=== PATIENT | female | born 1935 | race Caucasian/White ===

== ENCOUNTER 2019-10-27 19:38 | Observation (INO) ==
[2019-10-27 20:15] LABS: Hematocrit 36.9 % (37.0-47.0); Hemoglobin 11.8 gm/dL (12.5-16.0); Mean Cell Volume 88.9 fl (78-100); Mean Corpuscular Hemoglobin 28.4 pg (27-31); Mean Platelet Volume 10.1 fl (8-12.5); Neutrophil # 3.3 K/mm3 (1.3-6.0); Neutrophil % 58.3 % (42-75.0); Platelet Count 279 K/mm3 (150-450); Red Blood Count 4.15 M/mm3 (4.2-5.4); Red Cell Distribution Width 12.4 % (11.5-14.0); White Blood Count 5.6 K/mm3 (4.0-10.5)
--- NOTE | 2019-10-27 20:19 | ERNOTE ---
Dyspnea - General Presenting Symptoms: shortness of breath Time Seen by Provider: 10/27/19 20:09 Source: patient Exam Limitations: no limitations - Immun/Allergies/Home Medications Immunizations: IMMUNIZATION HX Immunizations Up to Date Yes History of Influenza Vaccine Yes Hx Pneumococcal Vaccination Yes Allergies/Adverse Reactions: Allergies naproxen [From Naprosyn] Allergy (Severe, Verified 10/27/19 19:51) Anaphylaxis Home Medications: HOME MEDICATIONS Atorvastatin Calcium 20 mg PO HS 10/21/12 [Last Taken Unknown] Fluticasone Propion/Salmeterol [Advair 250-50 Diskus] 14 each IH PRN PRN 10/21/12 [Last Taken Unknown] Isosorbide Mononitrate [Imdur] 60 mg PO DAILY 10/21/12 [Last Taken Unknown] Losartan Potassium [Cozaar] 50 mg PO DAILY 10/21/12 [Last Taken Unknown] amLODIPine BESYLATE [Norvasc (Amlodipine)] 5 mg PO DAILY 10/21/12 [Last Taken Unknown] Alendronate Sodium 70 mg PO Q7D 08/19/13 [Last Taken Unknown] Acetaminophen 1 - 3 tab PO TID PRN 09/27/19 [Last Taken Unknown] Gabapentin [Neurontin] 300 mg PO BID 09/27/19 [Last Taken Unknown] Metoprolol Tartrate [Lopressor] 37.5 mg PO BID 09/27/19 [Last Taken Unknown] Nitroglycerin 0.4 mg SUBLINGUAL Q5M PRN 09/27/19 [Last Taken Unknown] Pantoprazole Sodium 40 mg PO HS 09/27/19 [Last Taken Unknown] - History of Present Illness Narrative: She has had some increasing shortness of breath for about a week. Today around 1700 she had rapid increase in shortness of breath had some nausea and weakness. Severity: moderate, severe Treatment ASSURANCE OFFICER: by patient, albuterol Initiating event: Reports: unknown Frequency of episodes: Reports: frequent episodes Modifying Factors - (Improves): Reports: albuterol Modifying Factors (Worsens): Reports: activity Associated Symptoms-Dyspnea: Reports: wheezing Review of Systems - Review of Systems Constitutional: Present: fatigue. Absent: fever, chills EYE: Absent: vision changes ENT: Absent: nose congestion, nasal drainage Respiratory: Present: See HPI, shortness of breath, cough Cardiology: Present: chest pain Gastrointestinal/Abdominal: Present: nausea, vomiting. Absent: abdominal pain Musculoskeletal: Absent: back pain, muscle pain Skin: Absent: rash Neurological: Absent: headache, dizziness/light-headedness Endocrine: Absent: excessive sweating Medical History (Last Reviewed 10/27/19 @ 20:18 by Lance Flores DO) CAD (coronary artery disease) COPD (chronic obstructive pulmonary disease) FH: radiation therapy GI bleed Gastric ulcer HTN (hypertension) Lung cancer Surgical History: Surgical History (Last Reviewed 10/27/19 @ 20:18 by Lance Flores DO) History of appendectomy Hx of exploratory laparotomy Social History: (Last Reviewed 10/27/19 @ 20:18 by Lance Flores DO) Tobacco: Smoking Status: Former smoker Alcohol: alcohol intake: never Substance Use: substance use type: does not use Physical Exam - Physical Exam General Appearance: Present: wd/wn, alert, mild distress Head Exam: Present: normal inspection, no evidence of injury Neck: Present: normal inspection, nontender, supple Respiratory: Present: no respiratory distress, crackles, wheezing Cardiovascular/Chest: Present: no murmur, tachycardia Gastrointestinal/Abdominal: Present: normal bowel sounds, nontender, nondistended, soft Extremity Exam: Present: normal inspection, normal range of motion, no edema Neurological Exam: Present: alert, oriented, normal mood/affect Skin Exam: Present: normal color, warm/dry Lymphatic Exam: Present: no adenopathy Progress - Results and Orders Patient's Lab Results:: I have reviewed the patient's lab results. Results and Orders: Laboratory Tests 10/27/19 10/27/19 19:55 19:55 WBC 5.6 Hgb 11.8 L Hct 36.9 L Plt Count 279 Sodium 136 Potassium 4.1 Chloride 100 Carbon Dioxide 25.2 Anion Gap 14.9 H BUN 20 Creatinine 1.35 Calcium 8.8 Total Bilirubin 0.4 AST 19 ALT 15 L Troponin I Less than 0.017 B-Natriuretic Peptide 1177 H - Vital Signs Patient's Vital Signs:: I have reviewed the patient's vital signs. Vital Signs: Vital Signs 10/27/19 19:45 Temperature 36.6 C Pulse Rate 97 Respiratory Rate 15 Blood Pressure 133/72 O2 Sat by Pulse Oximetry 90 L - EKG EKG #1 EKG: NSR, other - old GA EKG read: Interp. by me - X-Ray X-Ray #1 X-Ray: chest Interpretation: Interp. by me X-ray Comments: Bilateral pulmonary edema. No consolidation. - Progress/Reassessment Chief Complaint: Dyspnea Progress Note-Subjective: 10/27/19 22:[address] Cedeño and she agrees with admission, we will also treat for acute exacerbation of COPD as this may be a combination of CHF and COPD. Departure Clinical Impression: Acute exacerbation of chronic bronchitis, Hypoxia CHF (congestive heart failure) Qualifiers: Heart failure type: unspecified Heart failure chronicity: acute Qualified Code(s): I50.9 - Heart failure, unspecified - Departure Disposition: Still a patient Condition: Good Referrals: Leanna Alfonso MD [Primary Care Provider] -
[2019-10-27 20:28] LABS: ALT 15 U/L (19-67); AST 19 U/L (0-48); Albumin * 3.6 gm/dl (3.4-5.0); Alkaline Phosphatase * 99 U/L (50-170); Anion Gap 14.9 mmol/L (6.8-13.8); BNP * 1177 pg/mL (5-550); BUN/Creatinine Ratio 14.8 (9.0-21.6); Bilirubin, Total 0.4 mg/dL (0.0-1.1); Blood Urea Nitrogen 20 mg/dL (3-23); Ca. Corrected For Albumin 8.8 mg/dL (8.4-10.2); Calcium * 8.8 mg/dL (7.9-10.9); Carbon Dioxide 25.2 mmol/L (24-32.6); Chloride 100 mmol/L (97-106); Glucose * 151 mg/dL (70-110); Potassium 4.1 mmol/L (3.4-4.6); Sodium 136 mmol/L (132-142); Troponin I Less than 0.017 ng/mL (0.00-0.10)
[2019-10-27] MEDS ORDERED: FUROSEMIDE 10 MG/ML VIAL IV ONE (21:04)
[2019-10-27] MEDS ORDERED: ALBUTEROL SULFATE 60 PUFF INHALER IH ONE (21:08)
[2019-10-27] MEDS ORDERED: cefTRIAXone SODIUM 1,000 MG/100 ML BAG IV ONE (22:27)
[2019-10-28 06:38] LABS: Anion Gap 8.7 mmol/L (6.8-13.8); BUN/Creatinine Ratio 14.6 (9.0-21.6); Calcium * 8.6 mg/dL (7.9-10.9); Carbon Dioxide 31.2 mmol/L (24-32.6); Estimated Creat Clear 24.2; Potassium 3.9 mmol/L (3.4-4.6)
[2019-10-28] MEDS ORDERED: AZITHROMYCIN 250 MG TABLET PO ONE (09:20)
[2019-10-28] MEDS: predniSONE 20 MG TABLET PO SCH (09:42)
[2019-10-28] MEDS: BENZONATATE 100 MG CAPSULE PO PRN (09:47)
[2019-10-28] MEDS: ALBUTEROL SULFATE/IPRATROPIUM 3 ML NEBU IH PRN ×3 (09:51→19:27)
--- NOTE | 2019-10-28 13:01 | HP ---
Chief Complaint - Chief Complaint Date of Service: 10/28/19 Time of Service: 09:03 Chief Complaint: Shortness of breath for several weeks History of Present Illness: 84-year-old female with a past medical history of coronary artery disease, COPD, hypertension, lung cancer not undergoing any treatment at this time only surveillance GI bleed presents from home with complaints of worsening shortness of breath for the past several weeks. She states her symptoms worsened last night and she presented to the emergency department. She does currently smoke 3 cigarettes daily. She is following with an oncologist at the [facility]. In the emergency room she was found to have low oxygen saturation of 90%, chest x-ray was positive for patchy consolidation posterior left midlung and possibly right medial mid lung indeterminate pulmonary nodule right mid to upper lung field, granulomatous disease. He was given 1 dose of Lasix 20 mg with not much urine output. She was started on ceftriaxone in the emergency room. She was admitted for COPD exacerbation. She was found to have a mildly elevated BNP of 1177. Medical History (Last Reviewed 10/28/19 @ 00:04 by Kylah Lopez RN) CAD (coronary artery disease) COPD (chronic obstructive pulmonary disease) FH: radiation therapy GI bleed Gastric ulcer HTN (hypertension) Lung cancer Surgical History: Surgical History (Last Reviewed 10/28/19 @ 00:04 by Kylah Lopez RN) History of appendectomy Hx of exploratory laparotomy Family History: Family History (Last Updated 10/27/19 @ 22:28 by Flor Crawford) Other No pertinent family history Social History: (Last Updated 10/28/19 @ 00:04 by Kylah Lopez RN) Tobacco: Smoking Status: Current every day smoker tobacco type: cigarettes Smoking cigarettes per day: 3 Alcohol: alcohol intake: never Substance Use: substance use type: does not use Review Of Systems (GEN) - Review of Systems Generalized/Overall Review: Absent: Fever Respiratory: Present: Cough, Shortness of Breath Cardiac: Present: Chest Pain Abdominal: Absent: Abdominal Pain Misc: All systems neg except as marked Immunizations: IMMUNIZATION HX Immunizations Up to Date Yes History of Influenza Vaccine Yes Hx Pneumococcal Vaccination Yes Allergies/Adverse Reactions: Allergies Allergy/AdvReac Type Severity Reaction Status Date / Time naproxen [From Naprosyn] Allergy Severe Anaphylaxis Verified 10/27/19 19:51 Home Medications: HOME MEDICATIONS Atorvastatin Calcium 20 mg PO HS 10/21/12 [Last Taken Unknown] Losartan Potassium [Cozaar] 50 mg PO DAILY 10/21/12 [Last Taken Unknown] amLODIPine BESYLATE [Norvasc (Amlodipine)] 5 mg PO DAILY 10/21/12 [Last Taken Unknown] Alendronate Sodium 70 mg PO Q7D 08/19/13 [Last Taken Unknown] Acetaminophen 1 - 3 tab PO TID PRN 09/27/19 [Last Taken Unknown] Gabapentin [Neurontin] 300 mg PO TID 09/27/19 [Last Taken Unknown] Metoprolol Tartrate [Lopressor] 37.5 mg PO BID 09/27/19 [Last Taken Unknown] Nitroglycerin 0.4 mg SUBLINGUAL Q5M PRN 09/27/19 [Last Taken Unknown] Pantoprazole Sodium 40 mg PO HS 09/27/19 [Last Taken Unknown] Albuterol Sulfate [Ventolin HFA] 2 puff INHALATION Q4H PRN 10/28/19 [Last Taken Unknown] Aspirin [Aspirin Enteric Coated] 81 mg PO DAILY 10/28/19 [Last Taken Unknown] Benzonatate 200 mg PO TID 10/28/19 [Last Taken Unknown] Bupropion HCl [Bupropion Xl] 150 mg PO DAILY 10/28/19 [Last Taken Unknown] Clonazepam 0.25 mg PO TID PRN 10/28/19 [Last Taken Unknown] Clopidogrel Bisulfate [Clopidogrel] 75 mg PO DAILY 10/28/19 [Last Taken Unknown] Cyclobenzaprine HCl [Flexeril] 10 mg PO TID PRN 10/28/19 [Last Taken Unknown] Fluticasone/Vilanterol [Breo Ellipta 200-25 Mcg INH] 1 ea INHALATION DAILY 10/28/19 [Last Taken Unknown] Hydrochlorothiazide [Hydrodiuril] 25 mg PO DAILY 10/28/19 [Last Taken Unknown] Isosorbide Mononitrate [Isosorbide Mononitrate ER] 60 mg PO DAILY 10/28/19 [Last Taken Unknown] Exam - Exam Vital Signs: Vital Signs - Last Taken Temp 36.3 C 10/28/19 06:00 Pulse 102 H 10/28/19 09:59 Resp 22 H 10/28/19 09:59 BP 125/46 10/28/19 06:00 Pulse Ox 98 10/28/19 10:03 Constitutional: Present: Alert, Cooperative, Well developed, Well nourished, Elderly ENT Exam: Present: hearing grossly normal Eye Exam: bilateral eye: normal inspection, PERRL, EOMI Neck: Present: non-tender. Absent: lymphadenopathy (R), lymphadenopathy (L) Back Exam: Present: normal inspection, no CVA tenderness, no vertebral tenderness Respiratory: Present: no respiratory distress, no accessory muscle use, wheezing - Throughout all lung levy on expiration. Absent: lungs clear, crackles, rhonchi Cardiovascular/Chest: Present: normal peripheral pulses, no edema, no murmur, tachycardia Peripheral Pulses: dorsalis-pedis (R): 1+, dorsalis-pedis (L): 1+ Abdomen: Present: Normal bowel sounds, soft, nontender Extremity: Present: no pedal edema Skin Exam: Present: normal color, warm/dry Neurologic: Present: alert, normal mood/affect Appearance: Present: appropriate appearance, appropriate insight Eye contact: Present: cooperative Thoughts: Present: normal thought pattern, normal mood /affect Diagnostic Studies: Abnormal Lab Results 10/27/19 10/27/19 10/28/19 Range/Units 19:55 19:55 06:10 RBC 4.15 L (4.2-5.4) M/mm3 Hgb 11.8 L (12.5-16.0) gm/dL Hct 36.9 L (37.0-47.0) % Immature Gran % (Auto) 0.70 H (0.001-0.429) % Immature Gran # (Auto) 0.04 H (0.000-0.0310) K/mm3 Eosinophils % 6.1 H (0.0-3.0) % Lymphocytes # 1.48 L (1.5-3.5) k/mm3 Anion Gap 14.9 H (6.8-13.8) mmol/L Est GFR (Non-Af Amer) 40 L 39 L (60-130) mL/min Random Glucose 151 H (70-110) mg/dL ALT 15 L (19-67) U/L B-Natriuretic Peptide 1177 H 1152 H (5-550) pg/mL Laboratory Results WBC 5.6 K/mm3 (4.0-10.5) 10/27/19 19:55 RBC 4.15 M/mm3 (4.2-5.4) L 10/27/19 19:55 Hgb 11.8 gm/dL (12.5-16.0) L 10/27/19 19:55 Hct 36.9 % (37.0-47.0) L 10/27/19 19:55 MCV 88.9 fl (78-100) 10/27/19 19:55 MCH 28.4 pg (27-31) 10/27/19 19:55 MCHC 32.0 g/dl (32-36) 10/27/19 19:55 RDW 12.4 % (11.5-14.0) 10/27/19 19:55 Plt Count 279 K/mm3 (150-450) 10/27/19 19:55 MPV 10.1 fl (8-12.5) 10/27/19 19:55 Immature Gran % (Auto) 0.70 % (0.001-0.429) H 10/27/19 19:55 Immature Gran # (Auto) 0.04 K/mm3 (0.000-0.0310) H 10/27/19 19:55 Neutrophils % 58.3 % (42-75.0) 10/27/19 19:55 Lymphocytes % 26.6 % (20-51) 10/27/19 19:55 Monocytes % 7.9 % (0.0-9) 10/27/19 19:55 Eosinophils % 6.1 % (0.0-3.0) H 10/27/19 19:55 Basophils % 0.4 % (0.0-1.0) 10/27/19 19:55 Nucleated RBC % 0.0 k/mm3 (0-1) 10/27/19 19:55 Neutrophils # 3.3 K/mm3 (1.3-6.0) 10/27/19 19:55 Lymphocytes # 1.48 k/mm3 (1.5-3.5) L 10/27/19 19:55 Monocytes # 0.4 k/mm3 (0.0-1.0) 10/27/19 19:55 Eosinophils # 0.3 k/mm3 (0.0-0.7) 10/27/19 19:55 Absolute Basophils 0.0 k/mm3 (0.0-0.1) 10/27/19 19:55 Sodium 137 mmol/L (132-142) 10/28/19 06:10 Plasma Sodium 137 mmol/L (130-142) 10/28/19 06:10 Potassium 3.9 mmol/L (3.4-4.6) 10/28/19 06:10 Chloride 101 mmol/L (97-106) 10/28/19 06:10 Carbon Dioxide 31.2 mmol/L (24-32.6) 10/28/19 06:10 Anion Gap 8.7 mmol/L (6.8-13.8) 10/28/19 06:10 BUN 20 mg/dL (3-23) 10/28/19 06:10 Creatinine 1.37 mg/dL (0.4-1.4) 10/28/19 06:10 Est GFR (Non-Af Amer) 39 mL/min (60-130) L 10/28/19 06:10 BUN/Creatinine Ratio 14.6 (9.0-21.6) 10/28/19 06:10 Random Glucose 92 mg/dL (70-110) D 10/28/19 06:10 Calcium 8.6 mg/dL (7.9-10.9) 10/28/19 06:10 Calcium Adj for Albumin 8.8 mg/dL (8.4-10.2) 10/27/19 19:55 Total Bilirubin 0.4 mg/dL (0.0-1.1) 10/27/19 19:55 AST 19 U/L (0-48) 10/27/19 19:55 ALT 15 U/L (19-67) L 10/27/19 19:55 Alkaline Phosphatase 99 U/L (50-170) 10/27/19 19:55 Troponin I Less than 0.017 ng/mL (0.00-0.10) 10/27/19 19:55 B-Natriuretic Peptide 1152 pg/mL (5-550) H 10/28/19 06:10 Total Protein 8.0 gm/dL (6.2-8.2) 10/27/19 19:55 Albumin 3.6 gm/dl (3.4-5.0) 10/27/19 19:55 SARS-CoV-2 (PCR) Not detected (ND) 10/27/19 22:20 Assessment/Plan - Narrative Narrative: 84-year-old female with a past medical history of coronary artery disease, COPD, hypertension, lung cancer not undergoing any treatment at this time only surveillance GI bleed presents from home with complaints of worsening shortness of breath for the past several weeks. She also complains of worsening cough. She states her symptoms worsened last night and she presented to the emergency department. She does currently smoke 3 cigarettes daily. She is following with an oncologist at the [facility]. In the emergency room she was found to have low oxygen saturation of 90%, chest x-ray was positive for patchy consolidation posterior left midlung and possibly right medial mid lung indeterminate pulmonary nodule right mid to upper lung field, granulomatous disease. He was given 1 dose of Lasix 20 mg with not much urine output. She was started on ceftriaxone in the emergency room. She was admitted for COPD exacerbation. She was found to have a mildly elevated BNP of 1177. Plan #1 start azithromycin today, continue ceftriaxone. #2 start prednisone 40 mg daily for 5 days #3 start DuoNeb treatments every 4 hours #4 resume home medications - Assessment/Plan (1) COPD exacerbation Problem: Acute (2) Lung cancer Problem: Acute (3) Hypertension Problem: Chronic Qualifiers: Hypertension type: essential hypertension Qualified Code(s): I10 - Essential (primary) hypertension (4) CAD (coronary artery disease) Problem: Chronic
[2019-10-28] MEDS ORDERED: CYCLOBENZAPRINE HCL 10 MG TABLET PO PRN (13:02)
[2019-10-28] MEDS ORDERED: ACETAMINOPHEN 325 MG TABLET PO PRN (13:02)
[2019-10-28] MEDS ORDERED: BUPROPION 300 MG PO SCH (13:15)
[2019-10-28] MEDS: GABAPENTIN 300 MG CAPSULE PO SCH (16:23)
[2019-10-28] MEDS: METOPROLOL TARTRATE 25 MG TABLET PO SCH (20:47)
[2019-10-28] MEDS ORDERED: PANTOPRAZOLE SODIUM 40 MG TABLET.EC PO SCH (21:00)
[2019-10-28] MEDS ORDERED: ROSUVASTATIN CALCIUM 10 MG TABLET PO SCH (21:00)
[2019-10-29] MEDS: ALBUTEROL SULFATE/IPRATROPIUM 3 ML NEBU IH PRN (06:57)
[2019-10-29] MEDS: BENZONATATE 100 MG CAPSULE PO PRN (07:05)
[2019-10-29 07:06] LABS: Hematocrit 34.9 % (37.0-47.0); Hemoglobin 11.2 gm/dL (12.5-16.0); Mean Cell Volume 86.8 fl (78-100); Mean Corpuscular Hemoglobin 27.9 pg (27-31); Mean Corpuscular Hgb Conc 32.1 g/dl (32-36); Mean Platelet Volume 9.6 fl (8-12.5); Neutrophil # 5.5 K/mm3 (1.3-6.0); Neutrophil % 75.3 % (42-75.0); Platelet Count 229 K/mm3 (150-450); Red Blood Count 4.02 M/mm3 (4.2-5.4); Red Cell Distribution Width 12.4 % (11.5-14.0); White Blood Count 7.3 K/mm3 (4.0-10.5)
[2019-10-29 07:22] LABS: Albumin * 3.4 gm/dl (3.4-5.0); BUN/Creatinine Ratio 17.5 (9.0-21.6); Bilirubin, Total 0.4 mg/dL (0.0-1.1); Ca. Corrected For Albumin 9.8 mg/dL (8.4-10.2); Calcium * 9.6 mg/dL (7.9-10.9); Total Protein 7.7 gm/dL (6.2-8.2)
[2019-10-29] MEDS ORDERED: LOSARTAN POTASSIUM 50 MG TABLET PO SCH (09:00)
[2019-10-29] MEDS ORDERED: HYDROCHLOROTHIAZIDE 25 MG TABLET PO SCH (09:00)
[2019-10-29] MEDS ORDERED: amLODIPine BESYLATE 5 MG TABLET PO SCH (09:00)
[2019-10-29] MEDS ORDERED: ISOSORBIDE MONONITRATE 120 MG TAB.SR.24H PO SCH (09:00)
[2019-10-29] MEDS ORDERED: buPROPion HCL 150 MG TAB.SR.24H PO SCH (09:00)
[2019-10-29] MEDS ORDERED: AZITHROMYCIN 250 MG TABLET PO SCH (09:00)
[2019-10-29] MEDS: GABAPENTIN 300 MG CAPSULE PO SCH ×2 (09:09→14:26)
[2019-10-29] MEDS: METOPROLOL TARTRATE 25 MG TABLET PO SCH (09:10)
[2019-10-29] MEDS: predniSONE 20 MG TABLET PO SCH (09:10)
[2019-10-29] MEDS: CLOPIDOGREL BISULFATE 75 MG TABLET PO SCH ×2 (09:10→10:13)
--- NOTE | 2019-10-29 10:42 | DS ---
(1) COPD exacerbation Problem: Acute (2) Lung cancer Problem: Acute (3) Hypertension Problem: Chronic Qualifiers: Hypertension type: essential hypertension Qualified Code(s): I10 - Essential (primary) hypertension (4) CAD (coronary artery disease) Problem: Chronic Hospital Course: 84-year-old female with a past medical history of coronary artery disease, COPD, hypertension, lung cancer not undergoing any treatment at this time only surveillance GI bleed presents from home with complaints of worsening shortness of breath for the past several weeks. She also complains of worsening cough. She states her symptoms worsened last night and she presented to the emergency department. She does currently smoke 3 cigarettes daily. She is following with an oncologist at the [facility]. In the emergency room she was found to have low oxygen saturation of 90%, chest x-ray was positive for patchy consolidation posterior left midlung and possibly right medial mid lung indeterminate pulmonary nodule right mid to upper lung field, granulomatous disease. He was given 1 dose of Lasix 20 mg with not much urine output. She was started on ceftriaxone in the emergency room. She was found to have a mildly elevated BNP of 1177. She was admitted for COPD exacerbation. She is doing well today. She was tapered off of oxygen supplementation and her oxygen saturations are maintaining on room air and with ambulation. She will be sent home on azithromycin, prednisone and Cefpodoxime. She should continue her nebulizer treatments at home every 4-6 hours as needed for shortness of breath. She is to follow-up with her primary care provider within 1 week of discharge. Procedures Performed: none Results and Findings: Lab Pending Results 10/27/19 19:55: WBC 5.6, RBC 4.15 L, Hgb 11.8 L, Hct 36.9 L, MCV 88.9, MCH 28.4, MCHC 32.0, RDW 12.4, Plt Count 279, MPV 10.1, Immature Gran % (Auto) 0.70 H, Immature Gran # (Auto) 0.04 H, Neutrophils % 58.3, Lymphocytes % 26.6, Monocytes % 7.9, Eosinophils % 6.1 H, Basophils % 0.4, Nucleated RBC % 0.0, Neutrophils # 3.3, Lymphocytes # 1.48 L, Monocytes # 0.4, Eosinophils # 0.3, Absolute Basophils 0.0 10/27/19 19:55: Sodium 136, Plasma Sodium 137, Potassium 4.1, Chloride 100, Car bon Dioxide 25.2, Anion Gap 14.9 H, BUN 20, Creatinine 1.35, Est GFR (Non-Af Amer) 40 L, BUN/Creatinine Ratio 14.8, Random Glucose 151 H, Calcium 8.8, Calcium Adj for Albumin 8.8, Total Bilirubin 0.4, AST 19, ALT 15 L, Alkaline Phosphatase 99, Troponin I Less than 0.017, B-Natriuretic Peptide 1177 H, Total Protein 8.0, Albumin 3.6 10/27/19 22:20: SARS-CoV-2 (PCR) Not detected 10/28/19 06:10: Sodium 137, Plasma Sodium 137, Potassium 3.9, Chloride 101, Carbon Dioxide 31.2, Anion Gap 8.7, BUN 20, Creatinine 1.37, Est GFR (Non-Af Amer) 39 L, BUN/Creatinine Ratio 14.6, Random Glucose 92 D, Calcium 8.6, B- Natriuretic Peptide 1152 H 10/29/19 06:30: WBC 7.3 D, RBC 4.02 L, Hgb 11.2 L, Hct 34.9 L, MCV 86.8, MCH 27.9, MCHC 32.1, RDW 12.4, Plt Count 229, MPV 9.6, Immature Gran % (Auto) 0.70 H, Immature Gran # (Auto) 0.05 H, Neutrophils % 75.3 H, Lymphocytes % 14.9 L, Monocytes % 8.9, Eosinophils % 0.1, Basophils % 0.1, Nucleated RBC % 0.0, Neutrophils # 5.5, Lymphocytes # 1.09 L, Monocytes # 0.7, Eosinophils # 0.0, Absolute Basophils 0.0 10/29/19 06:30: Sodium 137, Plasma Sodium 137, Potassium 4.0, Chloride 100, Carbon Dioxide 29.0, Anion Gap 12.0, BUN 20, Creatinine 1.14, Est GFR (Non-Af Amer) 48 L D, BUN/Creatinine Ratio 17.5, Random Glucose 98, Calcium 9.6, Calcium Adj for Albumin 9.8, Total Bilirubin 0.4, AST 17, ALT 17 L, Alkaline Phosphatase 84, Total Protein 7.7, Albumin 3.4 Discharge Location: Home Disposition: Home self-care Condition: Good Discharge Activity: Activity as tolerated Discharge Diet: Low salt Referrals: Leanna Alfonso MD [Primary Care Provider] - Problem Oriented Discharge Instructions to Patient/Family: Chronic Obstructive Pulmonary Disease, [id number], Heart Failure, [id number] Additional Patient Instructions (free text): Follow up appointment made with for November 09 at 9:55 Prescriptions (Any new or edited meds): Benzonatate 200 mg PO TID PRN #21 cap PRN Reason: Cough Transmission Status: Pending to [facility] Cefpodoxime Proxetil 200 mg PO BID #8 tab Transmission Status: Received by [facility] guaiFENesin [[place]-Tussin] 200 mg PO Q4H PRN #1 bottle PRN Reason: Cough Transmission Status: Received by [facility] predniSONE [Prednisone] 40 mg PO DAILY #6 tab Transmission Status: Received by [facility] Azithromycin [Zithromax] 250 mg PO DAILY #3 tab Transmission Status: Received by [facility] Complete Home Medications List: Complete Home Medication List: Atorvastatin Calcium 20 mg PO HS 10/21/12 Losartan Potassium [Cozaar] 50 mg PO DAILY 10/21/12 amLODIPine BESYLATE [Norvasc] 5 mg PO DAILY 10/21/12 Alendronate Sodium 70 mg PO Q7D 08/19/13 Acetaminophen 1 - 3 tab PO TID PRN 09/27/19 Gabapentin [Neurontin] 300 mg PO TID 09/27/19 Metoprolol Tartrate [Lopressor] 37.5 mg PO BID 09/27/19 Nitroglycerin 0.4 mg SUBLINGUAL Q5M PRN 09/27/19 Pantoprazole Sodium 40 mg PO HS 09/27/19 Albuterol Sulfate [Ventolin HFA] 2 puff INHALATION Q4H PRN 10/28/19 Aspirin [Aspirin Enteric Coated] 81 mg PO DAILY 10/28/19 Bupropion HCl [Bupropion Xl] 150 mg PO DAILY 10/28/19 Clonazepam 0.25 mg PO TID PRN 10/28/19 Clopidogrel Bisulfate [Clopidogrel] 75 mg PO DAILY 10/28/19 Cyclobenzaprine HCl [Flexeril] 10 mg PO TID PRN 10/28/19 Fluticasone/Vilanterol [Breo Ellipta 200-25 Mcg INH] 1 ea INHALATION DAILY 10/28/19 Hydrochlorothiazide [Hydrodiuril] 25 mg PO DAILY 10/28/19 Isosorbide Mononitrate [Isosorbide Mononitrate ER] 60 mg PO DAILY 10/28/19 Azithromycin [Zithromax] 250 mg PO DAILY #3 tab 10/29/19 Benzonatate 200 mg PO TID PRN #21 cap 10/29/19 Cefpodoxime Proxetil 200 mg PO BID #8 tab 10/29/19 guaiFENesin [[place]-Tussin] 200 mg PO Q4H PRN #1 bottle 10/29/19 predniSONE [Prednisone] 40 mg PO DAILY #6 tab 10/29/19
[2019-10-29 12:36] VITALS: BP 152/80
[2019-10-30] MEDS ORDERED: ISOSORBIDE MONONITRATE 60 MG TAB.SR.24H PO SCH (09:00)
== END 2019-10-29 12:50 | disposition home or self-care (01) ==
LOC: MS 19:38 → ER 19:38 → MS 23:36
PROVIDERS: ADMIT Internal Medicine; ATTEND Internal Medicine
DX: J44.1 Chronic obstructive pulmonary disease with (acute) exacerbation; J44.0 Chronic obstructive pulmonary disease with (acute) lower respiratory infection; J20.9 Acute bronchitis, unspecified; Z87.891 Personal history of nicotine dependence; C34.90 Malignant neoplasm of unspecified part of unspecified bronchus or lung; I10 Essential (primary) hypertension; I25.10 Atherosclerotic heart disease of native coronary artery without angina pectoris; R09.02 Hypoxemia
CPT/HCPCS: 36415; 71020; 71046; 80048; 80053; 83519; 83880; 84484; 85025; 93005; 94640; 96365; 96366; 96375; 99283; 99285; G0378

== ENCOUNTER 2020-08-09 10:32 | Observation (INO) ==
[2020-08-09 10:57] LABS: Hematocrit 34.8 % (37.0-47.0); Hemoglobin 10.9 gm/dL (12.5-16.0); Mean Cell Volume 81.7 fl (78-100); Mean Corpuscular Hemoglobin 25.6 pg (27-31); Mean Corpuscular Hgb Conc 31.3 g/dl (32-36); Mean Platelet Volume 9.7 fl (8-12.5); Neutrophil # 9.1 K/mm3 (1.3-6.0); Neutrophil % 87.7 % (42-75.0); Platelet Count 201 K/mm3 (150-450); Red Blood Count 4.26 M/mm3 (4.2-5.4); Red Cell Distribution Width 15.1 % (11.5-14.0); White Blood Count 10.4 K/mm3 (4.0-10.5)
[2020-08-09 10:59] LABS: Urine Bilirubin Negative (NEGATIVE); Urine Blood Negative /ul (NEGATIVE); Urine Ketone Negative (NEGATIVE); Urine Nitrite Negative (NEGATIVE); Urine Protein Negative (NEGATIVE); Urine Urobilinogen Normal (NORMAL); Urine pH 5.5 pH (5.0-7.0)
[2020-08-09 11:04] LABS: Urine Appearance Clear (CLEAR); Urine Color Yellow; Urine RBC None Seen /hpf (0-5); Urine WBC 0-5 /hpf (0-5)
[2020-08-09 11:05] LABS: Urine Amorphous Sediment Moderate - 2+ (NONE-FEW); Urine Bacteria 1+
[2020-08-09 11:14] LABS: Albumin * 3.1 gm/dl (3.4-5.0); Anion Gap 11.2 mmol/L (6.8-13.8); BUN/Creatinine Ratio 13.3 (9.0-21.6); Ca. Corrected For Albumin 8.8 mg/dL (8.4-10.2); Calcium * 8.4 mg/dL (7.9-10.9); Carbon Dioxide 26.6 mmol/L (24-32.6); Potassium 3.8 mmol/L (3.4-4.6); Total Protein 7.4 gm/dL (6.2-8.2)
[2020-08-09 11:34] LABS: Troponin I 0.041 ng/mL (0.00-0.10)
[2020-08-09] MEDS ORDERED: cefTRIAXone SODIUM 1,000 MG/100 ML BAG IV ONE (11:59)
[2020-08-09] MEDS ORDERED: AZITHROMYCIN 500 MG in DEXTROSE 5 % IN WATER 250 ML IV ONE ×2 (12:30)
--- NOTE | 2020-08-09 13:13 | ERNOTE ---
Medical Problem HPI - Narrative Date of Service: 08/09/20 - General Chief Complaint: Fever Time Seen by Provider: 08/09/20 10:46 Source: patient, family Exam Limitations: no limitations - Immun/Allergies/Home Medications Immunizations: IMMUNIZATION HX Immunizations Up to Date Yes History of Influenza Vaccine Yes Hx Pneumococcal Vaccination Yes Allergies/Adverse Reactions: Allergies naproxen [From Naprosyn] Allergy (Severe, Verified 08/09/20 10:42) Anaphylaxis Home Medications: HOME MEDICATIONS Atorvastatin Calcium 20 mg PO HS 10/21/12 [Last Taken Unknown] Losartan Potassium [Cozaar] 50 mg PO DAILY 10/21/12 [Last Taken Unknown] amLODIPine BESYLATE [Norvasc] 5 mg PO DAILY 10/21/12 [Last Taken Unknown] Alendronate Sodium 70 mg PO Q7D 08/19/13 [Last Taken Unknown] Acetaminophen 1 - 3 tab PO TID PRN 09/27/19 [Last Taken Unknown] Gabapentin [Neurontin] 300 mg PO BID 09/27/19 [Last Taken Unknown] Metoprolol Tartrate [Lopressor] 50 mg PO BID 09/27/19 [Last Taken Unknown] Nitroglycerin 0.4 mg SUBLINGUAL Q5M PRN 09/27/19 [Last Taken Unknown] Pantoprazole Sodium 40 mg PO HS 09/27/19 [Last Taken Unknown] Albuterol Sulfate [Ventolin HFA] 2 puff INHALATION Q4H PRN 10/28/19 [Last Taken Unknown] Aspirin [Aspirin Enteric Coated] 81 mg PO DAILY 10/28/19 [Last Taken Unknown] Bupropion HCl [Bupropion Xl] 150 mg PO DAILY 10/28/19 [Last Taken Unknown] Clonazepam 0.25 mg PO TID PRN 10/28/19 [Last Taken Unknown] Clopidogrel Bisulfate [Clopidogrel] 75 mg PO HS 10/28/19 [Last Taken Unknown] Cyclobenzaprine HCl [Flexeril] 10 mg PO TID PRN 10/28/19 [Last Taken Unknown] Hydrochlorothiazide [Hydrodiuril] 25 mg PO DAILY 10/28/19 [Last Taken Unknown] Isosorbide Mononitrate [Isosorbide Mononitrate ER] 60 mg PO DAILY 10/28/19 [Last Taken Unknown] Benzonatate 200 mg PO TID PRN #21 cap 10/29/19 [Last Taken Unknown] guaiFENesin [[place]-Tussin] 200 mg PO Q4H PRN #1 bottle 10/29/19 [Last Taken Unknown] Apixaban [Eliquis] 5 mg PO BID 08/09/20 [Last Taken Unknown] Morphine Sulfate 15 mg PO BID 08/09/20 [Last Taken Unknown] - History of Present History Narrative: Patient presents to the ED for confusion and fever this am. Her daughter relates that this am she was very confused and weak, could barely walk, generalized weakness. Daughter took a temperature and it was 102 degrees F. Fever treated and she had significant resolution of her Sx when the fever resolved. She has had increased cough. CT recently at [facility] showing PEs (treated) and possible pneumonia but not on antibiotics. She did not have unilateral weakness. No CP. No hemoptysis. Timing: other - confusion and weakness improving. Severity: moderate Modifying Factors - (Improves): Present: other - nothing Modifying Factors - (Worsens): Present: other - fever Review of Systems - Review of Systems Constitutional: Present: fever EYE: Present: no symptoms reported ENT: Absent: sore throat Respiratory: Present: cough Cardiology: Absent: chest pain Gastrointestinal/Abdominal: Absent: abdominal pain Genitourinary: Present: frequency Neurological: Present: See HPI All Other Systems: All systems neg except as marked Medical History (Last Reviewed 08/09/20 @ 13:10 by Artie Abarca MD) CAD (coronary artery disease) COPD (chronic obstructive pulmonary disease) FH: radiation therapy GI bleed Gastric ulcer HTN (hypertension) Lung cancer Surgical History: Surgical History (Last Reviewed 08/09/20 @ 13:10 by Artie Abarca MD) History of appendectomy Hx of exploratory laparotomy Family History: Family History (Last Reviewed 08/09/20 @ 13:10 by Artie Abarca MD) Other No pertinent family history Social History: (Last Reviewed 08/09/20 @ 13:10 by Artie Abarca MD) Tobacco: Smoking Status: Current every day smoker tobacco type: cigarettes Smoking cigarettes per day: 3 Alcohol: alcohol intake: never Substance Use: substance use type: does not use Physical Exam - Physical Exam General Appearance: Present: alert, other - no acute distress Head Exam: Present: normal inspection, no evidence of injury Eye Exam: Normal inspection: bilateral, PERRL: bilateral Ears, Nose, Throat: Present: normal ENT inspection Neck: Present: normal inspection Respiratory: Present: other - mild tachypnea, diminished bilaterally Cardiovascular/Chest: Present: regular rate, rhythm Gastrointestinal/Abdominal: Present: normal bowel sounds, nontender, soft Back Exam: Absent: CVA tenderness (R), CVA tenderness (L) Extremity Exam: Present: non-tender Neurological Exam: Present: alert, no motor/sensory deficits, 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 Absent: motor weakness Skin Exam: Present: normal color, warm/dry Progress - Results and Orders Patient's Lab Results:: I have reviewed the patient's lab results. - Vital Signs Patient's Vital Signs:: I have reviewed the patient's vital signs. Vital Signs: Vital Signs 08/09/20 10:39 08/09/20 12:16 08/09/20 12:37 Temperature 37.5 C Pulse Rate 92 76 75 Respiratory Rate 22 H 17 17 Blood Pressure 114/63 107/53 104/54 O2 Sat by Pulse Oximetry 92 L 93 93 - EKG EKG #1 EKG: NSR EKG read: Interp. by me EKG Comments: NSR rate 81. Non-specific ST/T wave changes, no STEMI noted - X-Ray X-Ray #1 X-Ray: chest Interpretation: Interp. by me X-ray Comments: I personally reviewed CXR images as well as the official radiology report - CT/Ultrasound CT/Ultrasound Narrative: I reviewed official radiology report for CT head. - Progress/Reassessment Chief Complaint: Fever Progress Note-Subjective: 08/09/20 13:11 IV ABx given. No suggestion clinically of acute stroke, it seems he confusion and weakness were likely from the fever this am. She has new pneumonia with significant co-morbidities. D/W case management. D/W Dr Arguello who will admit obs. Patient and family agreeable. Departure Clinical Impression: Pneumonia, Confusion, Fever, CHF (congestive heart failure) - Departure Disposition: Still a patient Condition: Fair
[2020-08-09] MEDS ORDERED: ACETAMINOPHEN 325 MG TABLET PO PRN (13:27)
[2020-08-09] MEDS ORDERED: guaiFENesin 100 MG/5 ML SYRUP PO PRN (13:29)
[2020-08-09] MEDS ORDERED: ALBUTEROL SULFATE 2.5 MG/0.5 ML VIAL.NEB IH PRN (13:30)
[2020-08-09] MEDS ORDERED: BENZONATATE 100 MG CAPSULE PO PRN (13:30)
[2020-08-09] MEDS ORDERED: NITROGLYCERIN 0.4 MG/TAB BTL SL PRN (13:30)
[2020-08-09] MEDS ORDERED: CYCLOBENZAPRINE HCL 10 MG TABLET PO PRN (13:30)
[2020-08-09] MEDS ORDERED: clonazePAM 0.5 MG TABLET PO PRN (13:30)
[2020-08-09] MEDS ORDERED: LOSARTAN POTASSIUM 50 MG TABLET PO SCH (13:45)
[2020-08-09] MEDS ORDERED: amLODIPine BESYLATE 5 MG TABLET PO SCH (13:45)
--- NOTE | 2020-08-09 16:08 | HP ---
Chief Complaint - Chief Complaint Date of Service: 08/09/20 Time of Service: 15:54 Chief Complaint: I have had weakness confusion and cough for several days. History of Present Illness: 85-year-old female with past medical history of lung cancer, CAD with old UT, CHF, hypertension, and COPD was evaluated in the ER this morning when the patient was brought in for evaluation of worsening confusion and generalized weakness. The patient reports being acutely ill for about a week and has been in and out of her doctor's office for evaluation of cough left flank pain and weakness. She has a history of lung cancer and is currently undergoing treatment and the [facility]. The patient reports her doctor informed her that she had a broken left rib and a PE so she was started on Eliquis which she is tolerating without any issues. This morning she was noted to have a fever and had to be treated with acetaminophen, this fever resolved but the patient was noted to be confused so she was brought to the ER for further evalu ation. Once in the ER the patient was found to have bilateral pneumonia and generalized weakness. On labs she was found to have an elevated BNP and crackles were detected on physical exam, this made administering IV fluids for hydration difficult due to her CHF. Right now the patient has hypertension but she remained stable. Medical History (Last Updated 08/09/20 @ 15:35 by Rosalva Liu RN) CAD (coronary artery disease) CHF (congestive heart failure) COPD (chronic obstructive pulmonary disease) FH: radiation therapy GI bleed Gastric ulcer HTN (hypertension) Heart attack Lung cancer Surgical History: Surgical History (Last Updated 08/09/20 @ 15:35 by Rosalva Liu RN) History of appendectomy History of coronary artery stent placement Hx of exploratory laparotomy Family History: Family History (Last Reviewed 08/09/20 @ 15:03 by Rosalva Liu RN) Sister Diabetes Heart disease Brother Stomach cancer Other Cancer No pertinent family history Social History: (Last Reviewed 08/09/20 @ 15:05 by Rosalva Liu RN) Social History: long term: No lives independently: Yes household members: children current occupational status: retired Highest level of school completed/degree received: GED or equivalent Service: No Tobacco: Smoking Status: Former smoker tobacco type: cigarettes Alcohol: alcohol intake: never Substance Use: substance use type: does not use Dietary Habits: caffeine: Yes Type: coffee Peds Patient Hx - Developmental: No Pertinent Hx Peds Patient Hx - Medical: No Pertinent Hx Peds Patient Hx - Cardiac/Respiratory: No Pertinent Hx Peds Patient Hx - Surgical: No Surgical History Patient History - Cancer: No Hx of Cancer Review Of Systems (GEN) - Review of Systems Generalized/Overall Review: Present: Weakness, Chills, Fever, Malaise EENTM: Present: No Symptoms Reported Respiratory: Present: Cough, Shortness of Breath, Wheezing Cardiac: Present: No Symptoms Reported Abdominal: Present: No Symptoms Reported Genitourinary: Present: No Symptoms Reported Musculoskeletal: Present: No Symptoms Reported Neurological: Present: No Symptoms Reported Skin: Present: No Symptoms Reported Endocrine: Present: No Symptoms Reported Immunizations: IMMUNIZATION HX Immunizations Up to Date Yes History of Influenza Vaccine Yes Hx Pneumococcal Vaccination Yes Allergies/Adverse Reactions: Allergies Allergy/AdvReac Type Severity Reaction Status Date / Time naproxen [From Naprosyn] Allergy Severe Anaphylaxis Verified 08/09/20 15:05 Home Medications: HOME MEDICATIONS Atorvastatin Calcium 20 mg PO HS 10/21/12 [Last Taken Unknown] Losartan Potassium [Cozaar] 50 mg PO DAILY 10/21/12 [Last Taken Unknown] amLODIPine BESYLATE [Norvasc] 5 mg PO DAILY 10/21/12 [Last Taken Unknown] Alendronate Sodium 70 mg PO Q7D 08/19/13 [Last Taken Unknown] Acetaminophen 1 - 3 tab PO TID PRN 09/27/19 [Last Taken Unknown] Gabapentin [Neurontin] 300 mg PO BID 09/27/19 [Last Taken Unknown] Metoprolol Tartrate [Lopressor] 50 mg PO BID 09/27/19 [Last Taken Unknown] Nitroglycerin 0.4 mg SUBLINGUAL Q5M PRN 09/27/19 [Last Taken Unknown] Pantoprazole Sodium 40 mg PO HS 09/27/19 [Last Taken Unknown] Albuterol Sulfate [Ventolin HFA] 2 puff INHALATION Q4H PRN 10/28/19 [Last Taken Unknown] Aspirin [Aspirin Enteric Coated] 81 mg PO DAILY 10/28/19 [Last Taken Unknown] Bupropion HCl [Bupropion Xl] 150 mg PO DAILY 10/28/19 [Last Taken Unknown] Clonazepam 0.25 mg PO TID PRN 10/28/19 [Last Taken Unknown] Clopidogrel Bisulfate [Clopidogrel] 75 mg PO HS 10/28/19 [Last Taken Unknown] Cyclobenzaprine HCl [Flexeril] 10 mg PO TID PRN 10/28/19 [Last Taken Unknown] Hydrochlorothiazide [Hydrodiuril] 25 mg PO DAILY 10/28/19 [Last Taken Unknown] Isosorbide Mononitrate [Isosorbide Mononitrate ER] 60 mg PO DAILY 10/28/19 [Last Taken Unknown] Benzonatate 200 mg PO TID PRN #21 cap 10/29/19 [Last Taken Unknown] guaiFENesin [[place]-Tussin] 200 mg PO Q4H PRN #1 bottle 10/29/19 [Last Taken Unknown] Apixaban [Eliquis] 5 mg PO BID 08/09/20 [Last Taken Unknown] Morphine Sulfate 15 mg PO BID 08/09/20 [Last Taken Unknown] Exam - Exam Vital Signs: Vital Signs - Last Taken Temp 36.8 C 08/09/20 15:08 Pulse 78 08/09/20 15:08 Resp 24 H 08/09/20 15:08 BP 113/53 08/09/20 15:08 Pulse Ox 99 08/09/20 15:08 Constitutional: Present: Alert, Oriented x3, Cooperative, Well developed, Well nourished, No distress, Elderly Eye Exam: bilateral eye: normal inspection, PERRL, EOMI Neck: Present: non-tender, full range of motion, supple, normal inspection, trachea midline Back Exam: Present: normal inspection, no CVA tenderness, no vertebral tenderness Breasts: Present: Exam deferred, Nontender Respiratory: Present: chest non-tender, crackles - Bibasilar crackles, wheezing Cardiovascular/Chest: Present: normal peripheral pulses, regular rate, rhythm, no edema, no gallop, no JVD, no murmur, chest tender - Left sided chest t enderness Peripheral Pulses: dorsalis-pedis (R): 2+, dorsalis-pedis (L): 2+ Abdomen: Present: Normal bowel sounds /Rectal: Present: Exam deferred Extremity: Present: normal range of motion, non-tender, normal inspection, no pedal edema, no calf tenderness Skin Exam: Present: normal color, warm/dry, no cyanosis Lymphatic: Present: no adenopathy Neurologic: Present: stage rigger II-XII nml as tested, normal cerebellar test, no mot or/sensory deficits, alert, normal mood/affect, oriented x 3 Appearance: Present: appropriate appearance, appropriate insight, neat, no memory impairment Eye contact: Present: cooperative, good eye contact, normal speech Thoughts: Present: normal thought pattern, no apparent hallucination Diagnostic Studies: Abnormal Lab Results 08/09/20 08/09/20 08/09/20 Range/Units 10:44 10:52 10:52 Hgb 10.9 L (12.5-16.0) gm/dL Hct 34.8 L (37.0-47.0) % MCH 25.6 L (27-31) pg MCHC 31.3 L (32-36) g/dl RDW 15.1 H (11.5-14.0) % Neutrophils % 87.7 H (42-75.0) % Lymphocytes % 4.3 L (20-51) % Neutrophils # 9.1 H (1.3-6.0) K/mm3 Lymphocytes # 0.45 L (1.5-3.5) k/mm3 Random Glucose 136 H (70-110) mg/dL B-Natriuretic Peptide (5-550) pg/mL Albumin 3.1 L (3.4-5.0) gm/dl Amorphous Sediment Moderate - 2+ H (NONE-FEW) Urine Bacteria 1+ H (NONE) 08/09/20 Range/Units 10:52 Hgb (12.5-16.0) gm/dL Hct (37.0-47.0) % MCH (27-31) pg MCHC (32-36) g/dl RDW (11.5-14.0) % Neutrophils % (42-75.0) % Lymphocytes % (20-51) % Neutrophils # (1.3-6.0) K/mm3 Lymphocytes # (1.5-3.5) k/mm3 Random Glucose (70-110) mg/dL B-Natriuretic Peptide 2300 H (5-550) pg/mL Albumin (3.4-5.0) gm/dl Amorphous Sediment (NONE-FEW) Urine Bacteria (NONE) Microbiology 08/09/20 11:19 Sputum Culture - Preliminary Expectorate Sputum Laboratory Results WBC 10.4 K/mm3 (4.0-10.5) 08/09/20 10:52 RBC 4.26 M/mm3 (4.2-5.4) 08/09/20 10:52 Hgb 10.9 gm/dL (12.5-16.0) L 08/09/20 10:52 Hct 34.8 % (37.0-47.0) L 08/09/20 10:52 MCV 81.7 fl (78-100) 08/09/20 10:52 MCH 25.6 pg (27-31) L 08/09/20 10:52 MCHC 31.3 g/dl (32-36) L 08/09/20 10:52 RDW 15.1 % (11.5-14.0) H 08/09/20 10:52 Plt Count 201 K/mm3 (150-450) 08/09/20 10:52 MPV 9.7 fl (8-12.5) 08/09/20 10:52 Immature Gran % (Auto) 0.30 % (0.001-0.429) 08/09/20 10:52 Immature Gran # (Auto) 0.03 K/mm3 (0.000-0.0310) 08/09/20 10:52 Neutrophils % 87.7 % (42-75.0) H 08/09/20 10:52 Lymphocytes % 4.3 % (20-51) L 08/09/20 10:52 Monocytes % 6.6 % (0.0-9) 08/09/20 10:52 Eosinophils % 0.9 % (0.0-3.0) 08/09/20 10:52 Basophils % 0.2 % (0.0-1.0) 08/09/20 10:52 Nucleated RBC % 0.0 k/mm3 (0-1) 08/09/20 10:52 Neutrophils # 9.1 K/mm3 (1.3-6.0) H 08/09/20 10:52 Lymphocytes # 0.45 k/mm3 (1.5-3.5) L 08/09/20 10:52 Monocytes # 0.7 k/mm3 (0.0-1.0) 08/09/20 10:52 Eosinophils # 0.1 k/mm3 (0.0-0.7) 08/09/20 10:52 Absolute Basophils 0.0 k/mm3 (0.0-0.1) 08/09/20 10:52 Sodium 135 mmol/L (132-142) 08/09/20 10:52 Plasma Sodium 136 mmol/L (130-142) 08/09/20 10:52 Potassium 3.8 mmol/L (3.4-4.6) 08/09/20 10:52 Chloride 101 mmol/L (97-106) 08/09/20 10:52 Carbon Dioxide 26.6 mmol/L (24-32.6) 08/09/20 10:52 Anion Gap 11.2 mmol/L (6.8-13.8) 08/09/20 10:52 BUN 12 mg/dL (3-23) 08/09/20 10:52 Creatinine 0.90 mg/dL (0.4-1.4) 08/09/20 10:52 Est GFR (Non-Af Amer) 63 mL/min (60-130) D 08/09/20 10:52 BUN/Creatinine Ratio 13.3 (9.0-21.6) 08/09/20 10:52 Random Glucose 136 mg/dL (70-110) H 08/09/20 10:52 Lactic Acid, Venous 0.8 mmol/L (0.4-2.0) 08/09/20 10:52 Calcium 8.4 mg/dL (7.9-10.9) 08/09/20 10:52 Calcium Adj for Albumin 8.8 mg/dL (8.4-10.2) 08/09/20 10:52 Total Bilirubin 1.0 mg/dL (0.0-1.1) 08/09/20 10:52 AST 35 U/L (0-48) 08/09/20 10:52 ALT 31 U/L (19-67) 08/09/20 10:52 Alkaline Phosphatase 84 U/L (50-170) 08/09/20 10:52 Troponin I 0.041 ng/mL (0.00-0.10) 08/09/20 10:52 B-Natriuretic Peptide 2300 pg/mL (5-550) H 08/09/20 10:52 Total Protein 7.4 gm/dL (6.2-8.2) 08/09/20 10:52 Albumin 3.1 gm/dl (3.4-5.0) L 08/09/20 10:52 Urine Color Yellow 08/09/20 10:44 Urine Appearance Clear (CLEAR) 08/09/20 10:44 Urine pH 5.5 pH (5.0-7.0) 08/09/20 10:44 Ur Specific [place] 1.010 SP.GR. (1.005-1.010) 08/09/20 10:44 Urine Protein Negative mg/dL (NEGATIVE) 08/09/20 10:44 Urine Glucose (UA) Negative mg/dL (NEGATIVE) 08/09/20 10:44 Urine Ketones Negative mg/dL (NEGATIVE) 08/09/20 10:44 Urine Blood Negative /ul (NEGATIVE) 08/09/20 10:44 Urine Nitrate Negative (NEGATIVE) 08/09/20 10:44 Urine Bilirubin Negative mg/dl (NEGATIVE) 08/09/20 10:44 Urine Urobilinogen Normal EU/dl (NORMAL) 08/09/20 10:44 Ur Leukocyte Esterase Negative /ul (NEGATIVE) 08/09/20 10:44 Urine RBC None seen /hpf (0-5) 08/09/20 10:44 Urine WBC 0-5 /hpf (0-5) 08/09/20 10:44 Ur Epithelial Cells 0-5 /hpf (0-5) 08/09/20 10:44 Amorphous Sediment Moderate - 2+ (NONE-FEW) H 08/09/20 10:44 Urine Bacteria 1+ (NONE) H 08/09/20 10:44 Urine Culture Comments No culture indicated 08/09/20 10:44 SARS-CoV-2 (PCR) Not detected (NotDetected) 08/09/20 13:06 Assessment/Plan - Narrative Narrative: Patient was evaluated medical chart was reviewed and decision to admit for a diagnosis of acute bronchopneumonia, CHF, and generalized weakness was made. The patient was started on dual IV antibiotics to treat her pneumonia and is tolerating the medications without any issues. She is currently on O2 oxygen supplementation by nasal cannula. She reports feeling somewhat better but still weak, there has been no recurrence of fever so far. We will keep the patient overnight for monitoring and reevaluate her in the morning. In the meantime we will not treat with IV hydration given her elevated BNP and history of CHF. Several of her antihypertensives were held due to ongoing hypotension, will reevaluate in the morning to see if we can restart them. She had a head CT done in the ER which was negative for any acute findings. Her confusion has resolved, she is now oriented x3 and appears to be at baseline. - Assessment/Plan (1) Lung cancer Problem: Acute (2) CHF (congestive heart failure) Problem: Acute (3) CAD (coronary artery disease) Problem: Chronic (4) Pneumonia Problem: Acute Qualifiers: Pneumonia type: due to unspecified organism (5) Confusion Problem: Resolved (6) Fever Problem: Resolved (7) Pulmonary embolism Problem: Acute Qualifiers: Chronicity: acute
[2020-08-09] MEDS: APIXABAN 5 MG TABLET PO SCH ×2 (17:15→20:20)
[2020-08-09] MEDS: ASPIRIN 81 MG TABLET.DR PO SCH (17:15)
[2020-08-09] MEDS: ISOSORBIDE MONONITRATE 60 MG TAB.SR.24H PO SCH (17:15)
[2020-08-09] MEDS: buPROPion HCL 150 MG TAB.SR.24H PO SCH (17:16)
[2020-08-09] MEDS: METOPROLOL TARTRATE 50 MG TABLET PO SCH ×2 (17:16→20:21)
[2020-08-09] MEDS: MORPHINE SULFATE 15 MG TABLET.SA PO SCH ×2 (17:16→20:19)
[2020-08-09] MEDS: GABAPENTIN 300 MG CAPSULE PO SCH ×2 (17:16→20:20)
[2020-08-09] MEDS: PANTOPRAZOLE SODIUM 20 MG TABLET.DR PO SCH (20:22)
[2020-08-09] MEDS ORDERED: CLOPIDOGREL BISULFATE 75 MG TABLET PO SCH (21:00)
[2020-08-09] MEDS ORDERED: ROSUVASTATIN CALCIUM 10 MG TABLET PO SCH (21:00)
[2020-08-10] MEDS: PANTOPRAZOLE SODIUM 20 MG TABLET.DR PO SCH (07:09)
[2020-08-10] MEDS: buPROPion HCL 150 MG TAB.SR.24H PO SCH (08:36)
[2020-08-10] MEDS: ASPIRIN 81 MG TABLET.DR PO SCH (08:37)
[2020-08-10] MEDS: APIXABAN 5 MG TABLET PO SCH (08:37)
[2020-08-10] MEDS: ISOSORBIDE MONONITRATE 60 MG TAB.SR.24H PO SCH (08:37)
[2020-08-10] MEDS: METOPROLOL TARTRATE 50 MG TABLET PO SCH (08:39)
[2020-08-10] MEDS: GABAPENTIN 300 MG CAPSULE PO SCH (08:41)
[2020-08-10] MEDS: MORPHINE SULFATE 15 MG TABLET.SA PO SCH (08:53)
[2020-08-10] MEDS ORDERED: AZITHROMYCIN 250 MG TABLET PO SCH (09:00)
--- NOTE | 2020-08-10 12:40 | DS ---
(1) Lung cancer Problem: Chronic (2) CHF (congestive heart failure) Problem: Chronic (3) CAD (coronary artery disease) Problem: Chronic (4) Pneumonia Problem: Acute Qualifiers: Pneumonia type: due to unspecified organism (5) Confusion Problem: Resolved (6) Fever Problem: Resolved (7) Pulmonary embolism Problem: Acute Qualifiers: Chronicity: acute Date of Discharge:: 08/10/20 Hospital Course: 85-year-old female admitted for acute bronchopneumonia, CHF, and generalized weakness was evaluated bedside this morning was found to be afebrile distress. Patient has shown significant clinical improvement after being treated with IV antibiotics to treat her pneumonia. She reports feeling stronger and denies any chills shortness of breath or cough. Patient with maintained stable vitals although she had a bout of tachycardia last night that resolved with beta-blockers. After evaluating her this morning decision to discharge home with instructions to follow-up with her PCP and with additional days of oral antibiotics was made. Procedures Performed: none Results and Findings: Pending Mircobiology Results 08/09/20 11:32 Blood Blood Culture - Preliminary NO GROWTH 24 HOURS 08/09/20 10:52 Blood Blood Culture - Preliminary NO GROWTH 24 HOURS 08/09/20 11:19 Expectorate Sputum Sputum Culture - Preliminary No Pathogens Isolated Lab Pending Results 08/09/20 10:44: Urine Color Yellow, Urine Appearance Clear, Urine pH 5.5, Ur Specific [place] 1.010, Urine Protein Negative, Urine Glucose (UA) Negative, Urine Ketones Negative, Urine Blood Negative, Urine Nitrate Negative, Urine Bilirubin Negative, Urine Urobilinogen Normal, Ur Leukocyte Esterase Negative, Urine RBC None seen, Urine WBC 0-5, Ur Epithelial Cells 0-5, Amorphous Sediment Moderate - 2+ H, Urine Bacteria 1+ H, Urine Culture Comments No culture indicated 08/09/20 10:52: WBC 10.4, RBC 4.26, Hgb 10.9 L, Hct 34.8 L, MCV 81.7, MCH 25.6 L, MCHC 31.3 L, RDW 15.1 H, Plt Count 201, MPV 9.7, Immature Gran % (Auto) 0.30, Immature Gran # (Auto) 0.03, Neutrophils % 87.7 H, Lymphocytes % 4.3 L, Monocytes % 6.6, Eosinophils % 0.9, Basophils % 0.2, Nucleated RBC % 0.0, Neutrophils # 9.1 H, Lymphocytes # 0.45 L, Monocytes # 0.7, Eosinophils # 0.1, Absolute Basophils 0.0 08/09/20 10:52: Sodium 135, Plasma Sodium 136, Potassium 3.8, Chloride 101, Carbon Dioxide 26.6, Anion Gap 11.2, BUN 12, Creatinine 0.90, Est GFR (Non-Af Amer) 63 D, BUN/Creatinine Ratio 13.3, Random Glucose 136 H, Calcium 8.4, Calcium Adj for Albumin 8.8, Total Bilirubin 1.0, AST 35, ALT 31, Alkaline Phosphatase 84, Total Protein 7.4, Albumin 3.1 L 08/09/20 10:52: Troponin I 0.041, B-Natriuretic Peptide 2300 H 08/09/20 10:52: Lactic Acid, Venous 0.8 08/09/20 13:06: SARS-CoV-2 (PCR) Not detected Discharge Location: Home Disposition: Home self-care Condition: Fair Face to Face Encounter completed per [facility] Guidelines: No Discharge Activity: Activity as tolerated Discharge Diet: General/regular food Referrals: Leanna Alfonso MD [Primary Care Provider] - Additional Patient Instructions (free text): Fax medical records at discharge to Dr. Alfonso fax( [phone] )and the phone ([phone] ) Prescriptions (Any new or edited meds): Azithromycin [Zithromax] 250 mg PO DAILY 5 Days #5 tab Transmission Status: Pending to [facility] Complete Home Medications List: Complete Home Medication List: Atorvastatin Calcium 20 mg PO HS 10/21/12 Losartan Potassium [Cozaar] 50 mg PO DAILY 10/21/12 amLODIPine BESYLATE [Norvasc] 5 mg PO DAILY 10/21/12 Alendronate Sodium 70 mg PO Q7D 08/19/13 Acetaminophen 1 - 3 tab PO TID PRN 09/27/19 Gabapentin [Neurontin] 300 mg PO BID 09/27/19 Metoprolol Tartrate [Lopressor] 50 mg PO BID 09/27/19 Nitroglycerin 0.4 mg SUBLINGUAL Q5M PRN 09/27/19 Pantoprazole Sodium 40 mg PO HS 09/27/19 Albuterol Sulfate [Ventolin HFA] 2 puff INHALATION Q4H PRN 10/28/19 Aspirin [Aspirin Enteric Coated] 81 mg PO DAILY 10/28/19 Bupropion HCl [Bupropion Xl] 150 mg PO DAILY 10/28/19 Clonazepam 0.25 mg PO TID PRN 10/28/19 Clopidogrel Bisulfate [Clopidogrel] 75 mg PO HS 10/28/19 Cyclobenzaprine HCl [Flexeril] 10 mg PO TID PRN 10/28/19 Hydrochlorothiazide [Hydrodiuril] 25 mg PO DAILY 10/28/19 Isosorbide Mononitrate [Isosorbide Mononitrate ER] 60 mg PO DAILY 10/28/19 Benzonatate 200 mg PO TID PRN #21 cap 10/29/19 guaiFENesin [[place]-Tussin] 200 mg PO Q4H PRN #1 bottle 10/29/19 Alendronate Sodium [Fosamax] 70 mg PO .WED 08/09/20 Apixaban [Eliquis] 5 mg PO BID 08/09/20 Morphine Sulfate 15 mg PO BID 08/09/20 Azithromycin [Zithromax] 250 mg PO DAILY 5 Days #5 tab 08/10/20 Forms: Patient Portal Registration
[2020-08-10 13:01] VITALS: BP 114/50
[2020-08-10] MEDS ORDERED: ROSUVASTATIN CALCIUM 10 MG TABLET PO SCH (21:00)
[2020-08-16] MEDS ORDERED: ALENDRONATE SODIUM 70 MG TABLET PO SCH (06:00)
== END 2020-08-10 13:45 | disposition home or self-care (01) ==
LOC: MS 10:32 → ER 10:32 → MS 14:29
PROVIDERS: ADMIT Family Medicine; ATTEND Family Medicine